=== PATIENT | female | born 1990 | race Hispanic/Latino ===

== ENCOUNTER 2017-03-28 01:34 | Outpatient (CLI) | payer MEDICAID ==
[2017-03-28] MEDS ORDERED: LACTATED RINGERS 1,000 ML IV ONE (02:43)
[2017-03-28 03:01] LABS: Hematocrit 34.2 % (30.3-42.9); Hemoglobin 11.1 gm/dl (10.1-14.3); Mean Corpuscular HGB Conc 33 % (30-34); Mean Corpuscular Hemoglobin 28 pg (28-32); Mean Corpuscular Volume 88 fl (79-97); Platelet Count 375 K/mm3 (140-440); Red Blood Count 3.91 M/mm3 (3.65-5.03); Red Cell Distribution Width 13.4 % (13.2-15.2); White Blood Count 14.1 K/mm3 (4.5-11.0)
[2017-03-28 03:14] LABS: Bacteria,Urine 1+ /HPF (Negative); Bilirubin,Urine NEG (Negative); Blood,Urine NEG (Negative); Ketones,Urine NEG (Negative); Leukocyte Esterase,Urine NEG (Negative); Mucus,Urine FEW /HPF; Nitrite,Urine NEG (Negative); Urobilinogen,Urine < 2.0 mg/dL (<2.0); WBC,Urine < 1.0 /HPF (0.0-6.0)
[2017-03-28 03:25] LABS: Albumin 3.4 g/dL (3.9-5); Albumin/Globulin Ratio 0.8 %; Alkaline Phosphatase 128 units/L (35-129); BUN/Creatinine Ratio 43.33; Bilirubin,Total < 0.20 mg/dL (0.1-1.2); Blood Urea Nitrogen 13 mg/dL (7-17); Calcium 9.8 mg/dL (8.4-10.2); Carbon Dioxide 21 mmol/L (22-30); Chloride 99.4 mmol/L (98-107); Glucose 85 mg/dL (65-100); Sodium 135 mmol/L (137-145); Total Protein 7.8 g/dL (6.3-8.2)
[2017-03-28 03:30] LABS: Alanine Aminotransferase 23 units/L (7-56); Anion Gap 19 mmol/L; Potassium 4.5 mmol/L (3.6-5.0)
[2017-03-28 03:36] LABS: Uric Acid 5.5 mg/dL (3.5-7.6)
[2017-03-28 05:14] VITALS: BP 126/83
== END 2017-03-28 03:56 | disposition home or self-care (01) ==
LOC: TRG 01:34
PROVIDERS: ATTEND Obstetrics & Gynecology
DX: O13.3 Gestational [pregnancy-induced] hypertension without significant proteinuria, third trimester (principal); O24.415 Gestational diabetes mellitus in pregnancy, controlled by oral hypoglycemic drugs; O99.333 Smoking (tobacco) complicating pregnancy, third trimester; O26.893 Other specified pregnancy related conditions, third trimester; R10.30 Lower abdominal pain, unspecified; M54.9 Dorsalgia, unspecified; Z3A.35 35 weeks gestation of pregnancy
CPT/HCPCS: 36415; 80053; 81001; 83615; 84550; 85027; 96360; J7120